=== PATIENT | female | born 1975 | race Caucasian/White ===

== ENCOUNTER 2016-10-04 18:51 | Emergency (ER) | payer OTHER ==
[2016-10-04 19:17] VITALS: RESP 16; TEMP 98.2
--- NOTE | 2016-10-04 19:30 | EDPHY ---
H & P Stated Complaint: fall on stairs Time Seen by Provider: 10/04/16 19:27 HPI/ROS: CHIEF COMPLAINT: Rib pain HISTORY OF PRESENT ILLNESS: Patient is a 41-year-old female who was walking down the steps carrying her baby when she slipped and fell onto her back. The baby landed on top of her and then rolled to the floor. She is complaining of right posterior rib pain. No pain with deep breathing. She denies any spinal pain or tenderness. No headache or neck pain. No extremity injuries. REVIEW OF SYSTEMS: Constitutional: denies: chills, fever, recent illness, recent injury EENTM: denies: blurred vision, double vision, nose congestion Respiratory: denies: cough, shortness of breath Cardiac: denies: chest pain, irregular heart rate, lightheadedness, palpitations Gastrointestinal/Abdominal: denies: abdominal pain, diarrhea, nausea, vomiting, blood streaked stools Genitourinary: denies: dysuria, frequency, hematuria, pain Musculoskeletal: See HPI Skin: denies: lesions, rash, jaundice, bruising Neurological: denies: headache, numbness, paresthesia, tingling, dizziness, weakness Hematologic/Lymphatic: denies: blood clots, easy bleeding, easy bruising Immunologic/allergic: denies: HIV/AIDS, transplant EXAM: GENERAL: Well-appearing, well-nourished and in no acute distress. HEAD: Atraumatic, normocephalic. EYES: Pupils equal round and reactive to light, extraocular movements intact, sclera anicteric, conjunctiva are normal. ENT: TMs normal, nares patent, oropharynx clear without exudates. Moist mucous membranes. NECK: Normal range of motion, supple without lymphadenopathy or JVD. LUNGS: Right posterior rib pain, no crepitus or deformity. Minor bruising. Breath sounds clear to auscultation bilaterally and equal. No wheezes rales or rhonchi. HEART: Regular rate and rhythm without murmurs, rubs or gallops. ABDOMEN: Soft, nontender, normoactive bowel sounds. No guarding, no rebound. No masses appreciated. BACK: No CVA tenderness, no spinal tenderness, step-offs or deformities EXTREMITIES: Normal range of motion, no pitting or edema. No clubbing or cyanosis. NEUROLOGICAL: Cranial nerves II through XII grossly intact. Normal speech, normal gait. 5/5 strength, normal movement in all extremities, normal sensation PSYCH: Normal mood, normal affect. SKIN: Warm, dry, normal turgor, no visible rashes or lesions. 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 - Family History Significant Family History: No pertinent family hx - Social History Smoking Status: Never smoked Alcohol Use: Sober Drug Use: None Constitutional: Initial Vital Signs Temperature (C) 36.8 C 10/04/16 19:14 Heart Rate 71 10/04/16 19:14 Respiratory Rate 16 10/04/16 19:14 Blood Pressure 108/66 10/04/16 19:14 O2 Sat (%) 98 10/04/16 19:14 O2 Delivery Mode Room Air Allergies/Adverse Reactions: Penicillins Allergy (Verified 10/04/16 19:13) mushrooms Allergy (Uncoded 10/04/16 19:13) walnuts Allergy (Uncoded 10/04/16 19:13) Home Medications: Medication Instructions Recorded Vit27&Calcium/Iron/FA 1 each PO DAILY 01/19/16 [] Docusate Sodium [Colace 100 MG (*)] 100 mg PO BID PRN #0 cap 01/20/16 Ibuprofen [Motrin (*)] 600 mg PO Q6HRS PRN #0 tab 01/20/16 Medical Decision Making - Diagnostics Imaging Results: Imaging Impressions Ribs w/Chest X-Ray 10/04/16 19:28 Impression: Chest negative for acute posttraumatic abnormality, specifically, a displaced right rib fracture is not identified. Imaging: I viewed and interpreted images myself ED Course/Re-evaluation: We discussed the x-ray results. The patient is reassured. Her exam is stable. She is eager to go home. We discussed use of Tylenol. The patient is breast- feeding. She declines further workup or testing at this time. Differential Diagnosis: Partial list of the Differential diagnosis considered include but were not limited to; rib fracture, muscle strain and although unlikely based on the history and physical exam, I also considered back injury, head injury, pneumothorax, PE. I discussed these differential diagnoses and the plan with the patient as well as the usual and expected course. The patient understands that the diagnosis is provisional and that in medicine we are not always correct and that further workup is often warranted. Usual and customary warnings were given. All of the patient's questions were answered. The patient was instructed to return to the emergency department should the symptoms at all worsen or return, otherwise to followup with the physician as we discussed. Departure - Departure Disposition: Home, Routine, Self-Care Clinical Impression: Rib pain on right side Condition: Fair Instructions: Thoracic Pain (ED) Referrals: Karlie Gold DO [Primary Care Provider] - As per Instructions
[2016-10-04 20:27] VITALS: BP 102/62; PULSE 70; O2SAT 94
== END 2016-10-04 20:26 | disposition home or self-care (01) ==
DX: S29.9XXA Unspecified injury of thorax, initial encounter (principal); W10.8XXA Fall (on) (from) other stairs and steps, initial encounter; Y99.8 Other external cause status; Y93.01 Activity, walking, marching and hiking